=== PATIENT | male | born 1970 | race Caucasian/White ===

== ENCOUNTER 2021-05-16 10:35 | Emergency (ER) | payer OTHER ==
[2021-05-16 11:22] LABS: HEMOGLOBIN 19.9 gm/dl (14.0-17.5); RED BLOOD COUNT 6.07 M/UL (4.20-5.50); WHITE BLOOD COUNT 7.7 K/UL (4.5-11.0)
[2021-05-16 11:41] LABS: BUN/CREATININE RATIO 20 (0-10)
[2021-05-16] MEDS ORDERED: ONDANSETRON ODT4 MG PO (12:21)
== END 2021-05-16 13:02 | disposition home or self-care (01) ==
LOC: ER1 10:35
PROVIDERS: Nurse Practitioner
DX: R19.7 Diarrhea, unspecified (principal); R11.2 Nausea with vomiting, unspecified; F17.210 Nicotine dependence, cigarettes, uncomplicated; I10 Essential (primary) hypertension; Z20.822 Contact with and (suspected) exposure to COVID-19
CPT/HCPCS: 0240U; 80053; 82150; 83690; 85025; 96374; 99284; J2405